=== PATIENT | female | born 1935 ===

== ENCOUNTER 2018-02-23 11:20 | Emergency (ER) | payer MEDICARE ==
--- NOTE | 2018-02-23 12:29 | C.PDOC ---
History Of Present Illness 82 y/o female presents to ED with c/o loose stool for 2 days more perfuse today. Patient reports multiple watery bowel movements, last episode at 10am. Patient admits to recent travel within [place] and reports possible sick contact. Patient denies cramping, nausea, vomiting, diarrhea, fever, blood in stool or any other complaints at this time. Time Seen by Provider: 02/23/18 11:53 Chief Complaint (Nursing): GI Problem History Per: Patient History/Exam Limitations: no limitations Onset/Duration Of Symptoms: Days Current Symptoms Are (Timing): Still Present Past Medical History Reviewed: Historical Data, Nursing Documentation, Vital Signs Vital Signs: Last Vital Signs Temp 98.2 F 02/23/18 11:27 Pulse 74 02/23/18 11:27 Resp 19 02/23/18 11:27 BP 180/69 H 02/23/18 11:27 Pulse Ox 98 02/23/18 11:27 - Medical History PMH: HTN Surgical History: No Surg Hx Family History: States: No Known Family Hx - Social History Hx Alcohol Use: No Hx Substance Use: No - Immunization History Hx Tetanus Toxoid Vaccination: No Hx Influenza Vaccination: Yes Hx Pneumococcal Vaccination: Yes Review Of Systems Constitutional: Negative for: Fever, Chills Respiratory: Negative for: Cough Gastrointestinal: Positive for: Diarrhea. Negative for: Nausea, Vomiting, Abdominal Pain, Hematochezia Genitourinary: Negative for: Dysuria, Hematuria Musculoskeletal: Negative for: Back Pain Physical Exam - Physical Exam Appears: Non-toxic, No Acute Distress Skin: Warm, Dry, No Rash Head: Atraumatic, Normacephalic Eye(s): bilateral: Normal Inspection Oral Mucosa: Moist Neck: Normal ROM, Supple Cardiovascular: Rhythm Regular Respiratory: Normal Breath Sounds, No Rales, No Rhonchi, No Wheezing Gastrointestinal/Abdominal: Soft, No Tenderness, No Guarding, No Rebound Back: No CVA Tenderness Extremity: Normal ROM, No Pedal Edema, Capillary Refill (<2 seconds) Neurological/Psych: Oriented x3, Normal Speech, Normal Cognition ED Course And Treatment - Laboratory Results Result Diagrams: 02/23/18 12:56 02/23/18 12:56 O2 Sat by Pulse Oximetry: 98 (RA) Pulse Ox Interpretation: Normal Reevaluation Time: 13:37 Reassessment Condition: Improved (NO RECUR SX SINCE INITIAL EVAL APPEARS COMFORTABLE ASYMPT) Disposition Counseled Patient/Family Regarding: Studies Performed, Diagnosis, Need For Followup, Rx Given - Disposition Referrals: YOUR,PMD [Other] Disposition: HOME/ ROUTINE Disposition Time: 13:38 Condition: IMPROVED Prescriptions: Atropine/Diphenoxylate [Lonox 0.025 MG-2.5 MG] 1 tab PO TID #12 tab Instructions: Viral Gastroenteritis, Adult (DC) Forms: [employer] (Lithuanian) - Clinical Impression Clinical Impression: Diarrhea - Scribe Statement The provider has reviewed the documentation as recorded by the Scribken aRshid All medical record entries made by the Ireneibken were at my direction and personally dictated by me. I have reviewed the chart and agree that the record accurately reflects my personal performance of the history, physical exam, medical decision making, and the department course for this patient. I have also personally directed, reviewed, and agree with the discharge instructions and disposition.
[2018-02-23] MEDS ORDERED: Sodium Chloride 0.9% 500 ML IV ONE (12:30)
[2018-02-23] MEDS ORDERED: Atropine-Diphenoxylate 0.025-2.5 mg Tab PO STA (12:31)
[2018-02-23] MEDS ORDERED: Atropine-Diphenoxylate 0.025-2.5 mg Tab ONE (12:45)
[2018-02-23 13:01] LABS: BASO # 0.1 K/uL (0.0-0.2); BASO % 1.4 % (0.0-2.0); EOS % 0.6 % (0.0-4.0); HEMOGLOBIN 13.9 g/dL (11.0-16.0); LYMPH # 1.5 K/uL (1.0-4.3); LYMPH % 19.4 % (20.0-40.0); MEAN CELL VOLUME 87.8 fL (81.0-99.0); MEAN CORPUSCULAR HEMOGLOBIN 30.8 pg (27.0-31.0); MEAN PLATELET VOLUME 8.6 fL (7.2-11.7); MONO # 0.3 K/uL (0.0-0.8); MONO % 4.1 % (0.0-10.0); NEUT # 5.8 K/uL (1.8-7.0); NEUT % 74.5 % (50.0-75.0); RBC 4.51 Mil/uL (3.80-5.20); RED CELL DISTRIBUTION WIDTH 13.5 % (11.5-14.5); WHITE BLOOD COUNT 7.8 K/uL (4.8-10.8)
[2018-02-23 13:17] LABS: BLOOD UREA NITROGEN 13 mg/dL (7-17); CALCIUM 9.4 mg/dl (8.6-10.4); GFR NON-AFRICAN AMERICAN > 60
[2018-02-23 13:30] VITALS: BP 129/55; PULSE 71; RESP 18; TEMP 97.6
[2018-02-23 13:41] VITALS: O2SAT 98
== END 2018-02-23 13:55 | disposition home or self-care (01) ==
LOC: C.ER 11:20
DX: R19.7 Diarrhea, unspecified (principal)
CPT/HCPCS: 80048; 85025; 96360; 99284; J7040